=== PATIENT | female | born 1995 | race Two or more races ===

== ENCOUNTER 2018-07-14 15:18 | Emergency (ER) | payer SELFPAY ==
--- NOTE | 2018-07-14 17:10 | RADIOLOGY REPORT (SQ) ---
EXAM DESCRIPTION: ANKLE RIGHT COMPLETE COMPLETED DATE/TIME: 07/14/2018 4:56 pm REASON FOR STUDY: pain COMPARISON: None. NUMBER OF VIEWS: Three views. TECHNIQUE: AP, lateral, and oblique radiographic images acquired of the right ankle. LIMITATIONS: None. FINDINGS: MINERALIZATION: Normal. BONES: No acute fracture or dislocation. No worrisome bone lesions. JOINTS: Small tibiotalar joint effusion. No disruption of the ankle mortise SOFT TISSUES: Diffuse lateral malleolar soft tissue swelling. No foreign body. OTHER: No other significant finding. IMPRESSION: Tibiotalar joint effusion with lateral soft tissue swelling. No acute fracture. No malalignment at the ankle mortise. TECHNICAL DOCUMENTATION: JOB ID: [id number] [employer]- All Rights Reserved Reading location - IP/workstation name: [email or web address]
--- NOTE | 2018-07-14 17:28 | ER Document Report ---
HPI - HPI Patient complains to provider of: right ankle injury Pain Level: 4 Context: Patient is a 23-year-old female presenting to the emergency department after inverting her right ankle last night. Patient states she heard a pop and felt immediate pain. Patient states she has been able to "hobble on it" but has not been able to bear full weight. Patient denies hitting her head, neck, back. Past medical history, hypothyroid Medications: Synthroid Allergies: None Past Medical History - General Information source: Patient - Social History Smoking Status: Never Smoker Lives with: Family Family History: Reviewed & Not Pertinent Vertical Provider Document - CONSTITUTIONAL Agree With Documented VS: Yes Notes: GENERAL: Alert, interacts well. No acute distress. HEAD: Normocephalic, atraumatic. EYES: Pupils equal, round, and reactive to light. Extraocular movements intact. ENT: Oral mucosa moist, tongue midline. NECK: Full range of motion. Supple. Trachea midline. LUNGS: Clear to auscultation bilaterally, no wheezes, rales, or rhonchi. No respiratory distress. HEART: Regular rate and rhythm. No murmur ABDOMEN: Soft, non-tender. Non-distended. Bowel sounds present in all 4 quadrants. EXTREMITIES: Moves all 4 extremities spontaneously. No edema, normal radial and dorsalis pedis pulses bilaterally. No cyanosis. Swelling noted right ankle, no ecchymosis noted pain lateral malleolus. Positive PMS right distal extremity. BACK: no cervical, thoracic, lumbar midline tenderness. No saddle anesthesia, normal distal neurovascular exam. NEUROLOGICAL: Alert and oriented x3. Normal speech. cranial nerves II through XII grossly intact PSYCH: Normal affect, normal mood. SKIN: Warm, dry, normal turgor. No rashes or lesions noted. - INFECTION CONTROL TRAVEL OUTSIDE OF THE [place] IN LAST 30 DAYS: No Course - Re-evaluation Re-evalutation: 07/14/18 17:26 X-ray shows no fracture will give a ankle stirrup and crutches for home use. Discussed close follow-up with primary care and then potentially orthopedics. - Vital Signs Vital signs: Temp Pulse Resp BP Pulse Ox 98.1 F 67 18 138/80 H 100 07/14/18 15:25 07/14/18 15:25 07/14/18 15:25 07/14/18 15:25 07/14/18 15:25 Discharge - Discharge Clinical Impression: Ankle sprain Qualifiers: Encounter type: initial encounter Involved ligament of ankle: unspecified ligament Laterality: right Qualified Code(s): S93.401A - Sprain of unspecified ligament of right ankle, initial encounter Condition: Stable Disposition: HOME, SELF-CARE Instructions: Use of Crutches ([facility]), Ankle Stirrup Splint ([facility]), Ice & Elevation ([facility]), Sprained Ankle ([facility]) Additional Instructions: Your x-ray shows no signs of sure. These follow-up with primary care provider. Orthopedic phone number are within this packet should you continue to have pain after 7 days. Please return to the emergency room for any other concerning symptoms. Referrals: TYRESE HENRIQUEZ MD [ACTIVE STAFF] - Follow up as needed
[2018-07-14 17:40] VITALS: BP 127/86
== END 2018-07-14 18:02 | disposition home or self-care (01) ==
LOC: ER 15:18
DX: S93.401A Sprain of unspecified ligament of right ankle, initial encounter (principal); X50.0XXA Overexertion from strenuous movement or load, initial encounter; Y93.01 Activity, walking, marching and hiking; E03.9 Hypothyroidism, unspecified; Z79.899 Other long term (current) drug therapy
CPT/HCPCS: 99283; 73610; L4350